=== PATIENT | female | born 1980 | race Caucasian/White ===

== ENCOUNTER 2017-08-25 17:00 | Inpatient (IN) | payer OTHER ==
[2017-08-25] MEDS ORDERED: AMPICILLIN SODIUM 2 GM in NS 100 ML IV ONE (18:04)
[2017-08-25] MEDS ORDERED: EPSOM SALT 454 GM TP PRN (18:04)
[2017-08-25] MEDS ORDERED: LR 1,000 ML IV PRN (18:04)
[2017-08-25] MEDS ORDERED: OLIVE OIL 118 ML BTL MISC PRN (18:04)
[2017-08-25] MEDS ORDERED: LIDOCAINE 1% 300 MG/30 ML SDV SC PRN (18:04)
[2017-08-25] MEDS ORDERED: MISOPROSTOL 200 MCG TAB PR PRN (18:04)
[2017-08-25] MEDS ORDERED: TERBUTALINE SULFATE 1 MG/ML VIAL IV PRN (18:04)
[2017-08-25] MEDS ORDERED: IBUPROFEN 600 MG TAB PO PRN (18:04)
[2017-08-25] MEDS ORDERED: OXYTOCIN/RINGERS LACTATE 1,000 ML IV PRN (18:04)
[2017-08-25 18:18] LABS: PLATELET COUNT 248 10^3/uL (150-400)
[2017-08-25] MEDS ORDERED: AMMONIA AROMATIC 1 EACH AMP IH ONE ×2 (18:47→18:48)
[2017-08-25] MEDS ORDERED: MISOPROSTOL 200 MCG TAB ONE (18:47)
[2017-08-25] MEDS ORDERED: OLIVE OIL 118 ML BTL ONE ×2 (18:47→18:48)
[2017-08-25] MEDS ORDERED: LIDOCAINE 1% 300 MG/30 ML SDV ONE ×2 (18:47→18:48)
[2017-08-25] MEDS ORDERED: OXYTOCIN 10 UNIT/ML VIAL ONE (18:49)
[2017-08-25] MEDS: AMPICILLIN SODIUM 1 GM in NS 50 ML IV SCH (22:32)
[2017-08-25] MEDS ORDERED: HYDROCORTISONE 0.5% CREAM TP PRN (23:13)
[2017-08-25] MEDS ORDERED: ACETAMINOPHEN 325 MG TAB PO PRN (23:13)
[2017-08-25] MEDS ORDERED: SIMETHICONE 80 MG TAB CHEW PO PRN (23:13)
[2017-08-25] MEDS ORDERED: HYDROCODONE/APAP 5/325 TAB PO PRN (23:13)
--- NOTE | 2017-08-25 23:16 | PDGENHP ---
History and Physical - Chief Complaint Active labor, H/o prior , desires - History of Present Illness 36 yo today at presented this evening in active labor, dilated to 6cm. SROM with clear fluid earlier in the day, contractions didn't really order picker until just an hour or so before presenting to the hospital. Had been checked in clinic week prior and was found to be 4cm. H/o prior and desires . Transferred care to our clinic around 20 wks from [place]. All records in her paper chart in our office. consents signed in chart. History Information - Allergies/Home Medication List Allergies/Adverse Reactions: No Allergies [NKDA] Allergy (Verified 08/25/17 18:03) I have personally reviewed and updated: family history, medical history, social history, surgical history - Past Medical History no pertinent PMH - Surgical History Additional surgical history: H/o prior delivery - Social History Smoking Status: Never smoked Review of Systems Review of Systems: ROS: 10pt was reviewed & negative except for what was stated in HPI & below Physical Exam Physical Exam: On admission, ceci regularly, appears very uncomfortable. 6cm, 80% effaced, -1 station. Belly is gravid, otherwise WNL. Lab Data & Imaging Review 08/26/17 04:15 WBC 19.04 10^3/uL (3.80-9.50) H 08/25/17 18:00 RBC 4.50 10^6/uL (4.18-5.33) 08/25/17 18:00 Hgb 14.5 g/dL (12.6-16.3) 08/25/17 18:00 Hct 43.6 % (38.0-47.0) 08/25/17 18:00 MCV 96.9 fL (81.5-99.8) 08/25/17 18:00 MCH 32.2 pg (27.9-34.1) 08/25/17 18:00 MCHC 33.3 g/dL (32.4-36.7) 08/25/17 18:00 RDW 12.9 % (11.5-15.2) 08/25/17 18:00 Plt Count 248 10^3/uL (150-400) 08/25/17 18:00 MPV 11.0 fL (8.7-11.7) 08/25/17 18:00 Neut % (Auto) 71.8 % (39.3-74.2) 08/25/17 18:00 Lymph % (Auto) 19.0 % (15.0-45.0) 08/25/17 18:00 Power % (Auto) 6.6 % (4.5-13.0) 08/25/17 18:00 Eos % (Auto) 1.5 % (0.6-7.6) 08/25/17 18:00 Baso % (Auto) 0.3 % (0.3-1.7) 08/25/17 18:00 Nucleat RBC Rel Count 0.0 % (0.0-0.2) 08/25/17 18:00 Absolute Neuts (auto) 13.65 10^3/uL (1.70-6.50) H 08/25/17 18:00 Absolute Lymphs (auto) 3.62 10^3/uL (1.00-3.00) H 08/25/17 18:00 Absolute Monos (auto) 1.26 10^3/uL (0.30-0.80) H 08/25/17 18:00 Absolute Eos (auto) 0.29 10^3/uL (0.03-0.40) 08/25/17 18:00 Absolute Basos (auto) 0.06 10^3/uL (0.02-0.10) 08/25/17 18:00 Absolute Nucleated RBC 0.00 10^3/uL (0-0.01) 08/25/17 18:00 Immature Gran % 0.8 % (0.0-1.1) 08/25/17 18:00 Immature Gran # 0.16 10^3/uL (0.00-0.10) H 08/25/17 18:00 Cord Blood PCO2 57.0 mmHg (37-60) 08/25/17 19:24 Cord Base Excess -5.6 mEq/L (-13.6--3.2) 08/25/17 19:24 Cord ABG pH 7.22 (7.10-7.37) 08/25/17 19:24 Cord VBG pH 7.35 (7.20-7.42) 08/25/17 19:24 Patient ABO/Rh A POSITIVE 08/25/17 18:00 Antibody Screen NEGATIVE 08/25/17 18:00 Assessment & Plan Assessment: 36 yo at presents in active labor, h/o prior , desires TOLAC. - Consents for signed and in chart. - GBS positive - Ampicillin ordered STAT on arrival. - Would like to avoid epidural if possible, nitrous first. - Rh positive, need to get rest of labs from office in AM. ABDULLAHI
--- NOTE | 2017-08-25 23:16 | OBDEL ---
Info Type: Vaginal () Presentation at Delivery: Vertex L&D Analgesia/Anesthesia Type: Nitrous GBS+: Yes (Recieved one dose of Ampicillin) Antibiotic Used for + GBS: Ampicillin Intrapartum Medications: Generic Name Dose Route Start Last Admin Trade Name Freq PRN Reason Stop Dose Admin Ampicillin Sodium 1 gm/ Sodium 50 mls @ 100 mls/hr 08/25/17 22:06 08/25/17 22 :32 Chloride IV 09/24/17 22:05 Not Given Q4H NAYELI Protocol Lidocaine HCl 300 mg 08/25/17 18:04 08/25/17 19:38 Lidocaine Hcl 1% SC 02/21/18 18:03 300 mg ONCE PRN Administration episiotomy Discontinued Medications Generic Name Dose Route Start Last Admin Trade Name Freq PRN Reason Stop Dose Admin Ampicillin Sodium 2 gm/ Sodium 110 mls @ 220 mls/hr 08/25/17 18:04 08/25/17 18:20 Chloride IV 08/25/17 18:33 110 mls ONCE ONE Administration Protocol Oxytocin/Lactated Ringer's 1,000 mls @ 125 mls/hr 08/25/17 18:04 08/25/17 19: 39 Pitocin 20 Units/Lr (Premix) IV 1,000 mls PRN PRN Administration Post bleeding Ibuprofen 600 mg 08/25/17 18:04 08/25/17 20:02 Motrin PO 600 mg ONCE PRN Administration post , pain Indications for Delivery: Spontaneous Labor Vaginal Delivery - Delivery Provider Delivery Physician/CNM: Espinoza Casey - Labor and Delivery Onset of Contractions Date: 08/25/17 Onset of Contractions Time: 16:30 Onset of Contractions Type: Spontaneous Rupture of Membranes Date: 08/25/17 Rupture of Membranes Time: 08:30 Rupture of Membranes Type: Spontaneous Amniotic Fluid Color: Clear Dilation Complete Date: 08/25/17 Dilation Complete Time: 18:50 Placenta Delivery Date: 08/25/17 Placenta Delivery Time: 19:35 Total Hours of Labor: 3 Non-surgical Procedures: FSE Laceration: 1st Degree, Other (Specify) (Bilateral labial) Repair: 4-0, Vicryl Vaginal Sponge Count Correct: Yes Vaginal Needle Count Correct: Yes EBL: 300cc Delivery Events: Nuchal Cord (x1, loose and reduced) Cord Gases: Cord Gases Cord Blood PCO2 57.0 mmHg (37-60) 08/25/17 19:24 Cord Base Excess -5.6 mEq/L (-13.6--3.2) 08/25/17 19:24 Cord ABG pH 7.22 (7.10-7.37) 08/25/17 19:24 Cord VBG pH 7.35 (7.20-7.42) 08/25/17 19:24 - Medications Labor Augmentation/Induction Methods Used: None Operative Report - Delivery Cord Gases: Cord Gases Cord Blood PCO2 57.0 mmHg (37-60) 08/25/17 19:24 Cord Base Excess -5.6 mEq/L (-13.6--3.2) 08/25/17 19:24 Cord ABG pH 7.22 (7.10-7.37) 08/25/17 19:24 Cord VBG pH 7.35 (7.20-7.42) 08/25/17 19:24 Data FELIX: 08/30/17 Gestational Age: 39 week(s) and 3 day(s) [place] Delivery Date: 08/25/17 Delivery Time: 19:24 Sex of Infant: Female Weight (gm): 3244 g Score (1 Min): 8 Score (5 Min): 9 Shoulder Dystocia Time Head Delivered: 19:24 Time Body Delivered: 19:24 ICD10 Worksheet Patient Problems: Problems Problem Status Onset Positive GBS test Acute , delivered, current hospitalization Acute - ICD10 Problem Qualifiers (1) , delivered, current hospitalization (2) Positive GBS test
[2017-08-25] MEDS: DOCUSATE SODIUM 100 MG CAP PO PRN (23:33)
[2017-08-26] MEDS: AMPICILLIN SODIUM 1 GM in NS 50 ML IV SCH ×2 (01:05→03:42)
[2017-08-26] MEDS: IBUPROFEN 600 MG TAB PO PRN ×4 (02:21→19:57)
[2017-08-26] MEDS: DOCUSATE SODIUM 100 MG CAP PO PRN ×2 (08:19→19:56)
--- NOTE | 2017-08-26 14:04 | OBPP ---
Progress Note Assessment/Plan: Assessment: 1) s/p PPD # 1 - pt is stable 2) Anemia Plan: Continue routine pp care Will start Bifera bid Plan for d/c home in am 6/5 08/26/17 14:03 Subjective/ Course: 08/26/17 14:02 Pt seen and examined. Doing well with no complaints. Mild cramping, relief with Motrin. She is OOB, reece reg diet, voiding and passing flatus. No BM yet. BF well so far without difficulty. Objective: 08/26/17 04:15 Patient ABO/Rh A POSITIVE 08/25/17 18:00 Temp Pulse Resp BP Pulse Ox 36.8 C 63 14 104/61 97 08/26/17 08:00 08/26/17 08:00 08/26/17 08:00 08/26/17 08:00 08/26/17 08:00 Uterine Position/Fundal Height: Umbilicus -2 Uterine Tone: Firm Physical Exam - Physical Exam General Appearance: alert, no apparent distress, mild distress Respiratory: lungs clear, normal breath sounds Cardiac/Chest: regular rate, rhythm Abdomen: normal bowel sounds, non-tender, soft, flatus (+) Extremities: non-tender, normal inspection Skin: normal color, warm/dry Neuro/Psych: alert, normal mood/affect, oriented x 3
[2017-08-26] MEDS: IRON POLYSAC/IRON HEME 28 MG TAB PO SCH ×2 (16:54→19:57)
[2017-08-27] MEDS: IBUPROFEN 600 MG TAB PO PRN ×2 (02:14→08:13)
[2017-08-27] MEDS: IRON POLYSAC/IRON HEME 28 MG TAB PO SCH (08:13)
[2017-08-27] MEDS: DOCUSATE SODIUM 100 MG CAP PO PRN (08:13)
--- NOTE | 2017-08-27 08:47 | OBGCSDC ---
General Delivery Information - General Info : 2 Para: 2 Abortions: 0 Type: Vaginal () L&D Analgesia/Anesthesia Type: Nitrous Admission Date: 08/25/17 Labs: Patient ABO/Rh A POSITIVE 08/25/17 18:00 Hct 36.1 % (38.0-47.0) L 08/26/17 04:15 - Hospital Course : 08/26/17 14:02 Pt seen and examined. Doing well with no complaints. Mild cramping, relief with Motrin. She is OOB, reece reg diet, voiding and passing flatus. No BM yet. BF well so far without difficulty. 08/27/17 08:46 S) Pt doing well, reports min pain and bleeding. she is ambulating and voiding without difficulty. She is . She desires discharge home today. O) VSS, afebrile constitutional: WNWF, A&Ox3 HEENT: normocephalic, atraumatic, supple Heart: RRR, No murmur Chest: CTA-B Abdomen: Soft, nontender Uterus: Firm at U-2 Lochia: Minimal rubra Perineum: Intact, healing well Extremities: Trace edema, and negative Eduin's sign Neuro: Grossly normal A) 36 year-old S/P PPD#2 P) Discharge home today Continue Pelvic rest x6wks Discussed danger signs (infection, preeclampsia, depression, heavy bleeding, etc) RTO in 4/6 weeks Vaginal - Delivery Provider Delivery Physician/CNM: Espinoza Casey - Diagnosis Labor: Spontaneous Rupture of Membranes Type: Spontaneous Amniotic Fluid Color: Clear Laceration: 1st Degree, Other (Specify) (Bilateral labial) Repair: 4-0, Vicryl Delivery Events: Nuchal Cord (x1, loose and reduced) - Procedures Non-surgical Procedures: FSE - Delivery Non-surgical Procedures: FSE EBL: 300cc Data FELIX: 08/30/17 Gestational Age: 39 week(s) and 4 day(s) [place] Delivery Date: 08/25/17 Delivery Time: 19:24 Sex of : Female [place] Weight (gm): 3244 g Score (1 Min): 8 Score (5 Min): 9 Discharge Information - Discharge Information Prescriptions: Ibuprofen [Motrin (*)] 600 mg PO Q6HRS PRN #30 tab PRN Reason: Pain, Mild Docusate Sodium [Colace 100 MG (*)] 100 mg PO BID PRN #60 cap PRN Reason: Constipation Iron Polysacch/Iron Heme Polyp [Bifera] 28 mg PO BID #60 tab Condition: Good Instruction/Follow Up: Four Weeks, Six Weeks
[2017-08-27 10:01] VITALS: BP 109/69
== END 2017-08-27 12:00 | disposition home or self-care (01) | DRG 775 ==
LOC: FLD 17:00 → FOB 22:10
PROVIDERS: ADMIT Obstetrics & Gynecology; ATTEND Obstetrics & Gynecology
PROC: 0HQ9XZZ Repair Perineum Skin, External Approach (ICD-10-PCS; principal; 2017-08-25)
PROC: 10E0XZZ Delivery of Products of Conception, External Approach (ICD-10-PCS; principal; 2017-08-25)
DX: O34.219 Maternal care for unspecified type scar from previous cesarean delivery (principal); Z37.0 Single live birth; Z3A.39 39 weeks gestation of pregnancy; O99.824 Streptococcus B carrier state complicating childbirth; O70.0 First degree perineal laceration during delivery; O69.82X0 Labor and delivery complicated by other cord entanglement, without compression, not applicable or unspecified
CPT/HCPCS: J0290; J2590